=== PATIENT | male | born 1945 | race Caucasian/White ===

== ENCOUNTER 2019-03-23 08:53 | Day surgery (SDC) | payer OTHER, SELFPAY ==
[2019-03-22 10:56] VITALS: BMI 31.1
--- NOTE | 2019-03-23 09:07 | ANES.PREANES ---
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/NAVAS GI: Comments: anemia Metabolic: Metabolic: Hyperlipidemia Anesthetic Plan: ASA status: III Anesthesia: MAC PFSH Anesthesia PFSH: Family History (Updated 03/22/19 @ 10:39 by Ericka Gamble LPN) Other Family history of cancer in mother Family history of colon cancer in father Denies family history of Diabetes Social History (Updated 03/22/19 @ 10:48 by Ericka Gamble LPN) Smoking and tobacco status: former smoker Quit status (tobacco): has quit using tobacco Year quit tobacco: 12/06/2010 Alcohol intake: never Substance/Drug Use: never Lives independently: Yes Marital status: Single Number of children: 2 Number of grandchildren: 4 Highest education level completed: Other Doctoral Degree service: Yes Current occupational status: retired Current occupation: RETIRED Pets and animals: Yes Allison/Yazidi: Caodaism Agree to transfusion: Yes Data Anesthesia Cardiac Studies: No Data to Display
[2019-03-23 09:43] VITALS: BP 135/84; PULSE 69; RESP 18; TEMP 36.4; O2SAT 93
[2019-03-23] MEDS: sodium chloride 0.9% 1,000 ML 30 ML (09:50)
[2019-03-23 10:36] VITALS: BP 96/52; PULSE 69; RESP 18; TEMP 36.6; O2SAT 97
[2019-03-23 10:44] LABS: Glucose Point of Care 108 mg/dL (70-110)
[2019-03-23 10:58] VITALS: BP 103/67; PULSE 72; RESP 18; O2SAT 96
--- NOTE | 2019-03-23 11:12 | ANE.PACU ---
 Inpatient post-anesthesia follow up: Airway intact: Yes Vital signs: Temperature 98 F Pulse Rate [Monito r] 72 Respiratory Rate 18 Blood Pressure [Le ft Arm] 103/67 Pulse Oximetry 96 Oxygen Delivery Me thod Room Air Oxygen Flow Rate 3 Fraction of Inspir ed Oxygen Hydration adequate: Yes Nausea and vomiting: No Mental status: Baseline
--- NOTE | 2019-03-23 11:17 | PM.HPUD ---
H&P update H&P Update: DATE OF SURGERY/PROCEDURE: 03/23/19 DATE H&P PERFORMED: 02/08/19 H&P UPDATE INFORMATION: No changes to prior documentation CHANGES TO PREVIOUS DOCUMENTATION: Anemia PLANNED PROCEDURE: Operation Date: 03/23/19 10:15 Proposed Procedures p EGD/COLON(Not Applicable) - Doc Gambino MD s Colonoscopy(Not Applicable) - Doc Gambino MD Conscious Sedation: PHYSICAL EXAM: alert, oriented x 3 and regular rate & rhythm OTHER PERTINENT EXAM FINDINGS: Abdomen: Soft Full H&P Perinent History: Medical/Surgical History: Medical History (Updated 03/23/19 @ 10:40 by Doc Gambino MD) Diverticulosis (Acute) Hiatal hernia (Acute) Family History: Family History (Updated 03/22/19 @ 10:39 by Ericka Gamble LPN) Other Family history of cancer in mother Family history of colon cancer in father Denies family history of Diabetes Social History: Social History Smoking and tobacco status: former smoker Quit status (tobacco): has quit using tobacco Year quit tobacco: 12/06/2010 Alcohol intake: never Substance/Drug Use: never Lives independently: Yes Marital status: Single Number of children: 2 Number of grandchildren: 4 Highest education level completed: Other Doctoral Degree service: Yes Current occupational status: retired Current occupation: RETIRED Pets and animals: Yes Allison/Holiness: Adventism Agree to transfusion: Yes A&P Assessment and plan (1) Anemia: EGD/colonoscopy under MAC Status: Chronic Code(s): D64.9 - Anemia, unspecified
== END 2019-03-23 11:14 | disposition home or self-care (01) ==
PROVIDERS: Family Provider Internal Medicine; PCP Internal Medicine; Visit Provider Surgery
PROC: 0DJ08ZZ Inspection of Upper Intestinal Tract, Via Natural or Artificial Opening Endoscopic (ICD-10-PCS; CPT 43235; principal; 2019-03-23 10:15)
PROC: 0DJD8ZZ Inspection of Lower Intestinal Tract, Via Natural or Artificial Opening Endoscopic (ICD-10-PCS; CPT 45378; 2019-03-23 10:15)
DX: D64.9 Anemia, unspecified (principal); K64.8 Other hemorrhoids; Z87.891 Personal history of nicotine dependence; Z95.5 Presence of coronary angioplasty implant and graft; E78.00 Pure hypercholesterolemia, unspecified; I10 Essential (primary) hypertension; Z83.3 Family history of diabetes mellitus; Z79.82 Long term (current) use of aspirin; D50.9 Iron deficiency anemia, unspecified
CPT/HCPCS: 12345; 36416; 43235; 45378; 82962; 96365; J2704; J7030

== ENCOUNTER 2020-04-03 07:36 | Outpatient (CLI) | payer OTHER, SELFPAY ==
--- NOTE | 2020-04-03 07:47 | USCV_ITS ---
Brian Zamora Age: 75 Gender: M : 1945 Exam Date: 04/03/2020 07:59 Ordering Phys: Danyell Agustin MD Technologist: Tara Dennis [place] [facility] [place]: AAA SCREENING HISTORY: Diameter (cm) AP x Transverse x Length Velocity (cm/s) Waveform Prox Aorta: 2.50 x 2.53 x 75.20 Mid Aorta: 1.83 x 1.73 x 78.40 Distal Aorta: 2.69 x 3.31 x 5.53 71.10 Right Iliac Prox: 1.16 x 1.01 x 69.40 Left Iliac Prox: 1.06 x 1.32 x 73.50 Stent Prox Landing x x Aneurysmal Sac Max x x Lt Lat Sac Dim Rt Lat Sac Dim Stent Dist Landing x x Right Iliac Stent x x Left Iliac Stent x x Right Renal Art Left Renal Art FINDINGS: Mild diffuse plaques in the abdominal aorta 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
== END 2020-04-03 07:37 | disposition home or self-care (01) ==
LOC: RAD 07:39
PROVIDERS: PCP Internal Medicine; Visit Provider Family Medicine
DX: I71.4 Abdominal aortic aneurysm, without rupture (principal)
CPT/HCPCS: 76706

== ENCOUNTER 2021-04-23 11:51 | Outpatient (CLI) | payer OTHER, SELFPAY ==
--- NOTE | 2021-04-23 12:02 | USCV_ITS ---
Brian Zamora Age: 76 Gender: M : 1945 Exam Date: 04/23/2021 12:16 Ordering Phys: Danyell Agustin MD Technologist: GUERO Exam Location: [facility] [place] Indication: Distal aortic anuerysm HISTORY: Diameter (cm) AP x Transverse x Length Velocity (cm/s) Waveform Prox Aorta: 2.51 x 2.51 x 39.30 Mid Aorta: 1.88 x 2.35 x 86.50 Distal Aorta: 2.74 x 3.20 x 52.20 Right Iliac Prox: 1.05 x 1.26 x 68.60 Left Iliac Prox: 1.06 x 1.13 x 76.10 Stent Prox Landing x x Aneurysmal Sac Max x x Lt Lat Sac Dim Rt Lat Sac Dim Stent Dist Landing x x Right Iliac Stent x x Left Iliac Stent x x Right Renal Art Left Renal Art FINDINGS: Difficult to visualize anuerysm due to bowel gas CONCLUSIONS Slightly aneurysmal Distal abdominal aorta measuring 2.7 x 3.2cm APx Transverse Normal iliac arteries Exam is somewhat limited due to bowel gas Matthew Pa MD (Electronically Signed) Final Date: 23 April 2021 14:59 S
== END 2021-04-23 11:52 | disposition home or self-care (01) ==
LOC: RAD 11:51
PROVIDERS: PCP Family Medicine; Visit Provider Family Medicine
DX: I71.4 Abdominal aortic aneurysm, without rupture (principal)
CPT/HCPCS: 93978

== ENCOUNTER 2023-03-07 08:09 | Outpatient (CLI) | payer OTHER, SELFPAY ==
--- NOTE | 2023-03-07 08:22 | USCV_ITS ---
Brian Zamora Age: 78 Gender: M : 1945 Exam Date: 03/07/2023 08:29 Ordering Phys: Danyell Agustin MD Technologist: CT [place]am [place] [facility] [place] Indication: small aaa HISTORY: Diameter (cm) AP x Transverse x Length Velocity (cm/s) Waveform Prox Aorta: 2.03 x 2.06 x 69.80 Mid Aorta: 2.48 x 2.22 x 58.00 Distal Aorta: 3.13 x 3.13 x 88.10 Right Iliac Prox: 1.51 x 1.32 x 93.50 Left Iliac Prox: 1.42 x 1.45 x 68.80 Stent Prox Landing x x Aneurysmal Sac Max x x Lt Lat Sac Dim Rt Lat Sac Dim Stent Dist Landing x x Right Iliac Stent x x Left Iliac Stent x x Right Renal Art Left Renal Art FINDINGS: Comparison:. 04/23/21 Ectatic abdominal aorta with evidence of atherosclerotic plaque noted. A slight abdominal aortic aneurysm is noted with a maximal diameter of 3.1 cm. No change. CONCLUSIONS No change seen from prior study. Minimal AAA , 3.[address] Brigida Victoria DO (Electronically Signed) Final Date: 07 March 2023 11:40 S
== END 2023-03-07 08:10 | disposition home or self-care (01) ==
LOC: RAD 08:10
PROVIDERS: PCP Family Medicine; Visit Provider Family Medicine
DX: I71.40 Abdominal aortic aneurysm, without rupture, unspecified (principal)
CPT/HCPCS: 93978

== ENCOUNTER → 2023-07-14 13:34 | Outpatient (BNVA) | payer OTHER, SELFPAY | PROVIDERS: PCP Family Medicine; Referring Provider Family Medicine; Visit Provider Internal Medicine | DX: R07.9 Chest pain, unspecified (principal); I45.10 Unspecified right bundle-branch block | CPT/HCPCS: 93005 ==

== ENCOUNTER → 2023-07-23 12:25 | Outpatient (BNVA) | payer OTHER, SELFPAY | PROVIDERS: PCP Family Medicine; Visit Provider Internal Medicine | DX: R07.9 Chest pain, unspecified (principal); I45.10 Unspecified right bundle-branch block; I25.10 Atherosclerotic heart disease of native coronary artery without angina pectoris; I10 Essential (primary) hypertension; E11.9 Type 2 diabetes mellitus without complications; Z87.891 Personal history of nicotine dependence | CPT/HCPCS: 93005; 99204 ==

== ENCOUNTER 2023-09-12 11:00 | Outpatient (CLI) | payer OTHER, SELFPAY ==
--- NOTE | 2023-09-12 11:00 | USCV_ITS ---
Brian Zamora Age: 78 Gender: M : 1945 Exam Date: 09/12/2023 11:30 Ordering Phys: Brannon Owen M.D ([email or web address]) Technologist: Marcell Avila [place] [facility] [place]: chest pain BP: 108 / 72 HR: 60 Rhythm: Sinus Technical Quality: Adequate MEASUREMENTS (Male / Female) Normal Values 2D ECHO LV Diastolic Diameter PLAX 5.0 cm 4.2 - 5.9 / 3.9 - 5.3 cm IVS Diastolic Thickness 0.8 cm 0.6 - 1.0 / 0.6 - 0.9 cm IVS Systolic Thickness 1.3 cm LVPW Diastolic Thickness 2.0 cm 0.6 - 1.0 / 0.6 - 0.9 cm LVPW Systolic Thickness 2.1 cm LVOT Diameter 2.0 cm LV Ejection Fraction 2D Teich 63.2 % LV Ejection Fraction MOD 4C 60.3 % LV Ejection Fraction MOD 2C 70.5 % LV Ejection Fraction 2C AL 70.3 % LA Diameter 4.0 cm RA Systolic Volume 4C AL 56.2 ml RA Systolic Volume 4C MOD 53.9 ml LA Sys Volume AL 61.2 cm cubed LA Sys Volume Index AL 26.6 cm cubed/m squared Aorta at Sinotubular Diameter 2.1 cm IVC Diameter 1.6 cm M-MODE LA Ao Ratio MM 1.1 AV Cusp Separation MM 2.2 cm DOPPLER AV Peak Velocity 94.0 cm/s LVOT Peak Velocity 91.0 cm/s AV Area Cont Eq vti 2.7 cm squared AV Area Cont Eq pk 3.1 cm squared MV Peak Velocity 73.0 cm/s MV Area PHT 4.4 cm squared Mitral E to A Ratio 1.1 TR Peak Velocity 103.0 cm/s TR Peak Gradient 4.2 mmHg TR Mean Velocity 78.0 cm/s TR Mean Gradient 2.7 mmHg TR Velocity Time Integral 19.9 cm PV Peak Velocity 90.0 cm/s RV Ejection Time 0.3 s FINDINGS Left Ventricle Left ventricle is normal size. LV systolic function is normal with EF 55 to 60%. No regional wall motion abnormalities are seen. Right Ventricle Normal in size and function Right Atrium Normal in size Left Atrium Normal in size Mitral Valve Structurally normal mitral valve. Mild mitral regurgitation Aortic Valve Aortic valve is thickened. Trace aortic regurgitation. No significant stenosis. Tricuspid Valve Insufficient TR jet to calculate RVSP Pulmonic Valve Not well visualized Pericardium Normal Aorta Normal in size IVC Appears to be normal CONCLUSIONS LV systolic function is normal with EF of 55-60% Mild mitral regurgitation Trace aortic regurgitation. No comparison studies are available. Brannon Owen MD (Electronically Signed) Final Date: 29 September 2023 11:18 S
== END 2023-09-12 11:16 | disposition home or self-care (01) ==
PROVIDERS: PCP Family Medicine; Visit Provider Internal Medicine
DX: I08.0 Rheumatic disorders of both mitral and aortic valves (principal); R07.9 Chest pain, unspecified; R06.02 Shortness of breath
CPT/HCPCS: 93306

== ENCOUNTER → 2024-07-21 13:50 | Outpatient (BNVA) | payer OTHER, SELFPAY | PROVIDERS: PCP Family Medicine; Visit Provider Internal Medicine | DX: I25.10 Atherosclerotic heart disease of native coronary artery without angina pectoris (principal); I10 Essential (primary) hypertension; E11.9 Type 2 diabetes mellitus without complications; Z79.84 Long term (current) use of oral hypoglycemic drugs; Z79.82 Long term (current) use of aspirin; Z87.891 Personal history of nicotine dependence | CPT/HCPCS: 99213 ==

== ENCOUNTER → 2024-12-22 10:41 | Outpatient (BNVA) | payer OTHER, SELFPAY | PROVIDERS: PCP Family Medicine; Visit Provider Dermatology | DX: H00.011 Hordeolum externum right upper eyelid (principal); L82.1 Other seborrheic keratosis; D18.01 Hemangioma of skin and subcutaneous tissue; L57.0 Actinic keratosis | CPT/HCPCS: 17000; 99203 ==